=== PATIENT | female | born 2000 | race Hispanic/Latino ===

== ENCOUNTER 2025-05-26 21:44 | Emergency (ER) | payer SELFPAY ==
[~2025-05-26] VITALS: Ht 162.6 cm; Wt 97.1 kg
--- NOTE | 2025-05-26 21:51 | ERN ---
General Chief Complaint: Multiple Complaints Stated Complaint: FEVER, HEADCHE, URINARY PAIN Time Seen by MD: 21:49 Source: patient History of Present Illness Initial Comments 24-year-old female with no past medical history beyond frequent UTIs. She is currently being treated for UTI and she completed her antibiotic therapy a day ago. She comes in with fevers chills and painful urination +tachycardia. And made a sepsis alert. Timing/Duration: 1 week Associated Symptoms: fever/chills Allergies: Coded Allergies: No Known Allergies (Unverified Allergy, Unknown, 05/26/25) Past Medical History Past Medical History: UTI Medical History Other: Recurrent UTIs Past Surgical History: None Female( History) LMP: May 13, 2025 Constitutional: (+) chills, (+) diaphoresis, (+) fever, (+) malaise, (+) weakness EENTM: (-) eye pain, (-) blurred vision, (-) tearing, (-) double vision, (-) ear pain, (-) ear discharge, (-) nose pain, (-) nose congestion, (-) throat pain, (-) Throat swelling, (-) mouth pain, (-) tooth pain, (-) mouth swelling, (-) other documentation Respiratory: (-) cough, (-) orthopnea, (-) short of breath, (-) stridor, (-) wheezing, (-) other documentation Cardiovascular: (-) chest pain, (-) edema, (-) palpitations, (-) syncope, (-) dyspnea on exertion, (-) other documentation Gastrointestinal/Abdominal: (-) nausea, (-) vomiting, (-) diarrhea, (-) abdominal pain, (-) abdominal distention, (-) constipation, (-) rectal bleeding, (-) dark stool/melena, (-) other documentation Musculoskeletal: (-) Neck pain, (-) back pain, (-) Flank Pain, (-) joint pain, (-) joint swelling, (-) muscle pain, (-) muscle stiffness, (-) gout, (-) other documentation Physical Exam Head/Face Trauma: No Eye: bilateral eye normal inspection, bilateral eye PERRL, bilateral eye EOMI Ear, Nose, Throat: (+) hearing grossly normal, (+) normal ENT inspection, (+) moist mucous membraine Neck: (+) normal inspection, (+) supple, (+) full range of motion, (+) no JVD Respiratory: (+) chest non-tender, (+) lungs clear, (+) well ventilated Heart: (+) regular, (+) no gallop Vascular: (+) no edema Gastrointestinal: (+) soft, (+) non-tender, (+) no organomegaly, (+) bowel sound present Back: (+) no CVA tenderness Results Laboratory and Microbiology Lab and Micro Result Laboratory Tests Test 05/26/25 22:00 05/26/25 23:31 White Blood Count 18.7 K/uL (4.8-10.8) H Red Blood Count 4.21 MIL/uL (4.00-5.50) Hemoglobin 12.8 g/dL (12.0-16.0) Hematocrit 37.8 % (36-48) Mean Corpuscular Volume 89.8 fL (79-99) Mean Corpuscular Hemoglobin 30.4 pg (27.0-33.0) Mean Corpuscular Hemoglobin Concent 33.9 g/dL (32.0-36.0) Red Cell Distribution Width 12.5 % (11.0-15.5) Platelet Count 261 K/uL (130-400) Mean Platelet Volume 10.2 fL (7.5-10.5) Immature Granulocyte % (Auto) 0.5 % (0-1) Neutrophils (%) (Auto) 86.0 % (40.0-77.0) H Lymphocytes (%) (Auto) 5.2 % (21.0-51.0) L Monocytes (%) (Auto) 8.1 % (3.0-13.0) Eosinophils (%) (Auto) 0.0 % (0.0-8.0) Basophils (%) (Auto) 0.2 % (0.0-5.0) Neutrophils # (Auto) 16.1 K/uL (1.8-7.7) H Lymphocytes # (Auto) 1.0 K/uL (1.0-4.8) Monocytes # (Auto) 1.5 K/uL (0.1-1.0) H Eosinophils # (Auto) 0.00 K/uL (0.00-0.70) Basophils # (Auto) 0.03 K/uL (0.00-0.20) Absolute Immature Granulocyte (auto 0.09 K/uL (0-1) Nucleated Red Blood Cells 0.0 % (0.0-0.19) White Cell Morphology Comment See comments Sodium Level 135 mmol/L (136-145) L Potassium Level 3.2 mmol/L (3.5-5.1) L Chloride Level 100 mmol/L (101-111) L Carbon Dioxide Level 28 mmol/L (21-32) Blood Urea Nitrogen 8 mg/dL (7-18) Creatinine 0.7 mg/dL (0.5-1.0) Glomerular Filtration Rate Calc 123 mL/min (>90) Random Glucose 96 mg/dL (70-105) Lactic Acid Level 1.2 mmol/L (0.8-2.5) Total Calcium 8.5 mg/dL (8.5-10.1) Total Creatine Kinase 44 U/L (21-232) Troponin I High Sensitivity < 4 ng/L (4-50) L Procalcitonin 0.50 ng/mL (0.05-0.5) Urine Color COLORLESS (YELLOW) Urine Appearance CLEAR (CLEAR) Urine pH 6.5 (5.0-8.0) Urine Specific [place] 1.003 (1.001-1.031) Urine Protein NEGATIVE mg/dL (NEGATIVE) Urine Glucose (UA) NEGATIVE mg/dL (NEGATIVE) Urine Ketones 40 mg/dL (NEGATIVE) H Urine Occult Blood NEGATIVE (NEGATIVE) Urine Nitrate NEGATIVE (NEGATIVE) Urine Bilirubin NEGATIVE mg/dL (NEGATIVE) Urine Urobilinogen 0.2 mg/dL (0.2-1.0) Urine Leukocyte Esterase 500 [place]/uL (NEGATIVE) H Urine RBC 0-1 /HPF (0-1) Urine WBC 51-100 /HPF (0-1) H Urine Squamous Epithelial Cells RARE /HPF (0-2) Urine Bacteria RARE /HPF (None Seen) Urine HCG, Qualitative NEGATIVE (NEGATIVE) MDM MDM: Differential diagnosis: UTI, pyelonephritis, STD, ovarian abscess Rationale: Tests considered and ordered secondary to shared decision making include: Previous outside records reviewed: Old ER visits. Risk of complication and/or morbidity or mortality of patient management: None Medications-Per medication reconciliation Need for hospitalization: Patient does meet criteria for hospitalization. Need for emergency major/minor surgery: No There are no social concerns with this patient. Prescription drug management Prescriptions will include symptomatic care Patient's prior external medical records from other ER visits were reviewed by me as indicated. Prior testing and results from previous visits were reviewed. Prior tests were taken into account with medical decision making and resource utilization, independent historian/historians were used to obtain complete medical history. I independently interpreted the test that were performed, results were reviewed by me and considered findings on radiology if ordered. Patient has a white blood cell count of 18. Her urine has strong leukocyte esterase activity there was no blood in it. Patient's procalcitonin is 0.05 and her lactate is 1.2. I did not order a CT to rule out pyelo as she has no CVA tenderness and she has no blood in her urine so I doubt she has renal stones. She told me that her medicine she took for her UTI was something that she got in [place] and she does not remember the kind so it is quite possible she did not take any antibiotics prior to today. Patient feels better would like to go home. I will give her a prescription for Keflex. I have already given her a g of Ancef here. I strongly encouraged her to come back to the hospital if her symptoms get worse. ED Course Orders Procedure Category Date Status Time Cbc With Differential LAB 05/26/25 Complete 21:53 Blood Cult ANDREEA 05/26/25 In Process 21:53 Urinalysis Profile LAB 05/26/25 Complete 21:53 Culture Urine ANDREEA 05/26/25 In Process 21:53 0.9%Nacl 1000ml (Ns PHA 05/26/25 In Process 1000ml) 22:00 Creatine Kinase, Total LAB 05/26/25 Complete 21:53 Troponin I High LAB 05/26/25 Complete Sensitivity 21:53 Lactic Acid LAB 05/26/25 Complete 21:53 Basic Metabolic Panel LAB 05/26/25 Complete 21:53 12 Lead Ekg Tracing- EKG 05/26/25 Logged Technical 21:53 ,Urine Test LAB 05/26/25 Complete 21:53 Procalcitonin LAB 05/26/25 Complete 21:53 Ketorolac PHA 05/26/25 Complete Tromethamine 30mg/Ml 22:00 Cefazolin Sodium 1 Gm PHA 05/26/25 Complete Vial (Ancef 1 Gm V 22:46 Current Medications Medications (Trade) Dose Ordered Sig/Honey Route PRN Reason Start Time Stop Time Status Last Admin Dose Admin Cefazolin Sodium (ANCEF 1 gm vial) 1 gm ONCE STAT IVP 05/26/25 22:46 05/26/25 22:49 DC 05/26/25 23:23 Ketorolac Tromethamine (toRADol) 30 mg ONCE ONCE IVP 05/26/25 22:00 05/26/25 22:01 DC 05/26/25 22:21 Sodium Chloride 2,913 ml @ 971 mls/hr ONCE ONCE IV 05/26/25 22:00 05/27/25 00:59 05/26/25 22:21 Vital Signs Date Time Temp Pulse Resp B/P (MAP) Pulse Ox O2 Delivery O2 Flow Rate FiO2 05/26/25 21:50 104.0 124 20 124/78 98 Room Air* 0 21 05/26/25 21:46 104.4 136 26 130/69 96 Room Air DX & DISP Disposition: Discharge Departure Impression: Primary Impression: UTI (urinary tract infection) Condition: Stable Scripts Cephalexin Monohydrate (Keflex) 500 Mg Cap 500 MG PO QID for 7 Days, #28 CAP Prov: WESTON SIMMS MD 05/26/25 Additional Instructions: You have a urinary tract infection since you do not remember the name of the medication that you took from [place] I can not be sure if you took antibiotics or not. I have given you some antibiotics here in the emergency room and I am writing for a prescription for antibiotics as well. Please return to the emergency room if you continue to have fever chills worsening symptoms such as being lightheaded or weak. Referrals: SELF,REFERRAL (PCP) WESTON SIMMS MD May 26, 2025 21:51
[2025-05-26 22:15] LABS: IMMATURE GRANULOCYTE ABSOLUTE 0.09 K/uL (0-1); NUCLEATED RED BLOOD CELLS 0.0 % (0.0-0.19); PLATELET COUNT (AUTO) 261 K/uL (130-400); RED BLOOD CELL COUNT(AUTO) 4.21 MIL/uL (4.00-5.50); RED CELL DISTRIBUTION WIDTH 12.5 % (11.0-15.5); WHITE BLOOD COUNT (AUTO) 18.7 K/uL (4.8-10.8)
[2025-05-26] MEDS: [UNRECOGNIZED DRUG - OTHER] IV ONE (22:21)
[2025-05-26 22:31] LABS: CREATININE 0.7 mg/dL (0.5-1.0); GLOMERULAR FILTR. RATE CALC 123.0 mL/min (>90); GLUCOSE,RANDOM 96.0 mg/dL (70-105); SODIUM SERUM 135.0 mmol/L (136-145); UREA NITROGEN, BLOOD 8.0 mg/dL (7-18)
[2025-05-26 22:36] LABS: CREATINE KINASE, TOTAL 44.0 U/L (21-232)
[2025-05-26 23:40] LABS: ADD UA MICROSCOPIC YES; APPEARANCE,URINE CLEAR (CLEAR); GLUCOSE, URINE (UA) NEGATIVE (NEGATIVE); LEUKOCYTE ESTERASE ,URINE 500 Leu/uL (NEGATIVE); NITRATE,URINE NEGATIVE (NEGATIVE); OCCULT BLOOD,URINE NEGATIVE (NEGATIVE)
[2025-05-26 23:41] LABS: HCG,QUALITATIVE URINE NEGATIVE (NEGATIVE)
[2025-05-26 23:47] LABS: SQUAMOUS EPITHELIAL CELL,UR RARE /HPF (0-2)
[2025-05-26] MEDS ORDERED: CEPH500B PO (23:59)
[2025-05-27 00:19] VITALS: BP 114/79; PULSE 98; RESP 19; TEMP 98.4; O2SAT 98
--- NOTE | 2025-05-27 07:24 | EKG ---
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
== END 2025-05-27 00:33 | disposition home or self-care (01) ==
LOC: EDH 21:44
DX: N39.0 Urinary tract infection, site not specified (principal)
CPT/HCPCS: 99284; 96365; 96361; 96375; 82550; 84484; 80048; 85025; 87040 ×2; 87086 ×2; 87186; 83605; 81001; 81025; 36415; 93005; 84145; J1885; J0690